=== PATIENT | male | born 1940 | race Caucasian/White ===

== ENCOUNTER 2017-07-29 08:01 | Day surgery (SDC) | payer BC, OTHER ==
[2017-07-27 10:48] VITALS: BMI 27.1
[2017-07-29] MEDS ORDERED: PROPOFOL 20 ML ONE ×2 (08:08)
[2017-07-29 12:14] VITALS: TEMP 97.5
[2017-07-29 12:27] VITALS: BP 98/63; PULSE 70
== END 2017-07-29 10:45 | disposition home or self-care (01) ==
LOC: FASU-ENDO 08:01
PROVIDERS: ATTEND Internal Medicine Gastroenterology
PROC: 0DJD8ZZ Inspection of Lower Intestinal Tract, Via Natural or Artificial Opening Endoscopic (ICD-10-PCS; principal; 2017-07-29 09:20)
DX: Z86.010 Personal history of colon polyps (principal); K64.8 Other hemorrhoids

== ENCOUNTER 2023-10-19 09:47 | Day surgery (SDC) | payer OTHER ==
[2023-10-13 13:48] VITALS: BMI 27.1
[2023-10-19] MEDS ORDERED: ePHEDrine SULFATE 50 MG/1 ML AMPULE ONE (11:29)
[2023-10-19 11:39] VITALS: TEMP 97
[2023-10-19 12:00] VITALS: RESP 16
[2023-10-19 12:01] VITALS: BP 100/58; PULSE 80
== END 2023-10-19 12:21 | disposition home or self-care (01) ==
LOC: FASU-ENDO 09:47
PROVIDERS: ATTEND Internal Medicine Gastroenterology
PROC: 0DJD8ZZ Inspection of Lower Intestinal Tract, Via Natural or Artificial Opening Endoscopic (ICD-10-PCS; principal; 2023-10-19 11:16)
DX: Z12.11 Encounter for screening for malignant neoplasm of colon (principal); K57.30 Diverticulosis of large intestine without perforation or abscess without bleeding; Z86.010 Personal history of colon polyps

== ENCOUNTER 2024-02-18 17:23 | Inpatient (IN) | payer OTHER ==
[2024-02-18 18:21] LABS: INR 1.08 (0.83-1.09); PROTHROMBIN TIME (PATIENT) 12.3 SEC (9.7-13.0)
[2024-02-18 18:31] LABS: ALBUMIN 3.5 g/dl (3.4-5.0); BILIRUBIN,TOTAL 0.7 mg/dl (0.2-1); CALCIUM 8.8 mg/dl (8.5-10.1); CREATININE 2.3 mg/dl (0.6-1.3); MAGNESIUM 2.1 mg/dL (1.8-2.4); POTASSIUM 4.7 mmol/L (3.5-5.1); TOT PROT 5.7 g/dl (6.4-8.2)
[2024-02-18 18:39] LABS: HEMATOCRIT 39.3 % (35.4-49); HEMOGLOBIN 12.9 G/dL (11.7-16.9); MCH 31.3 pg (25.7-33.7); MCHC 32.7 g/dl (32.0-35.9); MEAN CELL VOLUME 95.7 fl (80-96); MEAN PLT VOLUME 8.4 fl (7.5-11.1); PLATELET COUNT 247.7 10^3/uL (134-434); RBC 4.11 10^6/uL (4.00-5.60); RDW 14.3 % (11.9-15.9); WHITE BLOOD COUNT 9.7 10^3/uL (4.0-10.8)
[2024-02-18] MEDS ORDERED: ENOXAPARIN NA (PORCINE) 100 MG/1 ML DISP.SYRIN SQ ONE (18:55)
[2024-02-18] MEDS: ENOXAPARIN NA (PORCINE) 80 MG/0.8 ML DISP.SYRIN SQ ONE (19:04)
[2024-02-18 20:41] LABS: VENOUS BASE EXCESS -3.5 mmol/L (-2-2); VENOUS O2 SATURATION 58.8 % (70-80); VENOUS PCO2 40.7 mmHg (38-52); VENOUS PH 7.348 (7.310-7.410)
[2024-02-18] MEDS ORDERED: ACETAMINOPHEN 325 MG TABLET (FP) PO PRN (23:24)
[2024-02-18] MEDS ORDERED: SODIUM CHLORIDE 1,000 ML IV SCH (23:30)
[2024-02-19 00:21] LABS: N-TERMINAL BNP 4377.8 pg/ml (5-450)
[2024-02-19 06:23] VITALS: BMI 19.5
[2024-02-19] MEDS ORDERED: ENOXAPARIN NA (PORCINE) 40 MG/0.4 ML DISP.SYRIN SQ SCH (06:30)
[2024-02-19 09:12] LABS: ALBUMIN 3.2 g/dl (3.4-5.0); BILIRUBIN,TOTAL 0.7 mg/dl (0.2-1); CALCIUM 8.5 mg/dl (8.5-10.1); CREATININE 1.7 mg/dl (0.6-1.3); POTASSIUM 5.2 mmol/L (3.5-5.1); TOT PROT 5.2 g/dl (6.4-8.2)
[2024-02-19] MEDS: ENOXAPARIN NA (PORCINE) 80 MG/0.8 ML DISP.SYRIN SQ SCH ×2 (09:29→21:12)
[2024-02-19 10:02] LABS: HEMATOCRIT 36.1 % (35.4-49); HEMOGLOBIN 12.3 GM/dL (11.7-16.9); MCH 31.6 pg (25.7-33.7); MEAN CELL VOLUME 92.8 fl (80-96); MEAN PLT VOLUME 8.4 fl (7.5-11.1); PLATELET COUNT 262 10^3/uL (134-434); RBC 3.89 M/mm3 (4.00-5.60); RDW 13.3 % (11.9-15.9)
[2024-02-19] MEDS: SODIUM CHLORIDE 0.45% 1,000 ML IV SCH (13:38)
[2024-02-19] MEDS: SODIUM ZIRCONIUM CYCLOSILICATE (LOKELMA) 5 GM PACKET PO SCH (13:39)
[2024-02-19] MEDS ORDERED: ENOXAPARIN NA (PORCINE) 80 MG/0.8 ML DISP.SYRIN SQ SCH (19:00)
[2024-02-20 12:43] LABS: HEMATOCRIT 39.8 % (35.4-49); HEMOGLOBIN 12.7 G/dL (11.7-16.9); MCH 30.6 pg (25.7-33.7); MCHC 31.9 g/dl (32.0-35.9); MEAN CELL VOLUME 95.8 fl (80-96); MEAN PLT VOLUME 8.5 fl (7.5-11.1); PLATELET COUNT 317.3 10^3/uL (134-434); RBC 4.15 10^6/uL (4.00-5.60); RDW 14.4 % (11.9-15.9); WHITE BLOOD COUNT 7.2 10^3/uL (4.0-10.8)
[2024-02-20 12:51] LABS: PLATELET ESTIMATE ADEQUATE
[2024-02-20 12:56] LABS: CALCIUM 8.4 mg/dl (8.5-10.1); CREATININE 1.3 mg/dl (0.6-1.3); POTASSIUM 4.8 mmol/L (3.5-5.1)
[2024-02-20 12:57] LABS: ALBUMIN 3.3 g/dl (3.4-5.0); BILIRUBIN,TOTAL 0.5 mg/dl (0.2-1); TOT PROT 5.3 g/dl (6.4-8.2)
[2024-02-20] MEDS: APIXABAN 5 MG TABLET PO SCH (21:08)
[2024-02-21 10:00] LABS: EOS % 2.9 % (0-4.5); HEMATOCRIT 36.2 % (35.4-49); LYMPH % 14.1 % (8-40); MCH 31.5 pg (25.7-33.7); MCHC 33.2 g/dl (32.0-35.9); MEAN PLT VOLUME 8.4 fl (7.5-11.1); MONO % 10.9 % (3.8-10.2); NEUT % 71.1 % (42.8-82.8); PLATELET COUNT 351 10^3/uL (134-434); RBC 3.81 M/mm3 (4.00-5.60); RDW 13.3 % (11.9-15.9); WHITE BLOOD COUNT 6.5 K/mm3 (4.0-10.0)
[2024-02-21 10:09] LABS: ALBUMIN 3.2 g/dl (3.4-5.0); BILIRUBIN,TOTAL 0.5 mg/dl (0.2-1); CALCIUM 8.4 mg/dl (8.5-10.1); CREATININE 1.3 mg/dl (0.6-1.3); POTASSIUM 5.4 mmol/L (3.5-5.1); TOT PROT 5.1 g/dl (6.4-8.2)
[2024-02-22 09:05] LABS: ALBUMIN 3.2 g/dl (3.4-5.0); BILIRUBIN,TOTAL 0.5 mg/dl (0.2-1); CALCIUM 8.6 mg/dl (8.5-10.1); CREATININE 1.3 mg/dl (0.6-1.3); POTASSIUM 4.8 mmol/L (3.5-5.1)
[2024-02-22 09:31] LABS: HEMATOCRIT 34.9 % (35.4-49); LYMPH % 12.9 % (8-40); MCH 32.1 pg (25.7-33.7); MCHC 34.5 g/dl (32.0-35.9); MEAN CELL VOLUME 93.1 fl (80-96); MEAN PLT VOLUME 8.1 fl (7.5-11.1); NEUT % 72.1 % (42.8-82.8); PLATELET COUNT 380 10^3/uL (134-434); RBC 3.75 M/mm3 (4.00-5.60); RDW 13.7 % (11.9-15.9); WHITE BLOOD COUNT 5.5 K/mm3 (4.0-10.0)
[2024-02-22 09:47] VITALS: BP 109/80; PULSE 73; RESP 18; TEMP 97.8
== END 2024-02-22 13:58 | disposition home or self-care (01) | DRG 299 ==
LOC: FER 17:23 → FM/S 21:49
PROVIDERS: ADMIT Internal Medicine
DX: I82.412 Acute embolism and thrombosis of left femoral vein (principal); I26.99 Other pulmonary embolism without acute cor pulmonale; N17.9 Acute kidney failure, unspecified; I82.432 Acute embolism and thrombosis of left popliteal vein; I82.442 Acute embolism and thrombosis of left tibial vein; I12.9 Hypertensive chronic kidney disease with stage 1 through stage 4 chronic kidney disease, or unspecified chronic kidney disease; N18.9 Chronic kidney disease, unspecified; E87.5 Hyperkalemia; E78.5 Hyperlipidemia, unspecified; I35.0 Nonrheumatic aortic (valve) stenosis
CPT/HCPCS: 0241U-QW; 36415; 71045-TC-FY; 80053; 80061; 82803; 83735; 83880; 84484; 85025; 85027; 85610; 85730; 93005; 93306-TC; 93971-TC; 99285-25